=== PATIENT | male | born 2000 | race African-American/Black ===

== ENCOUNTER 2020-04-01 03:02 | Emergency (ER) | payer BC, OTHER | END 2020-04-01 03:18 | disposition home or self-care (01) | LOC: ERS 03:02 | DX: Z02.89 Encounter for other administrative examinations (principal); R10.30 Lower abdominal pain, unspecified | CPT/HCPCS: 99281 ==

== ENCOUNTER 2022-05-31 23:50 | Emergency (ER) | payer SELFPAY | END 2022-06-01 01:45 | disposition home or self-care (01) | LOC: ERS 23:50 | DX: J39.9 Disease of upper respiratory tract, unspecified (principal); Z20.822 Contact with and (suspected) exposure to COVID-19 | CPT/HCPCS: 71045; U0003; U0005 ==

== ENCOUNTER 2022-06-18 23:31 | Emergency (ER) | payer SELFPAY | END 2022-06-18 23:40 | disposition left against medical advice (07) | LOC: ERS 23:31 | DX: Z53.21 Procedure and treatment not carried out due to patient leaving prior to being seen by health care provider (principal) ==